=== PATIENT | female | born 1975 | race Caucasian/White ===

== ENCOUNTER 2018-05-20 20:41 | Emergency (ER) | payer BC ==
[~2018-05-20] VITALS: Ht 172.7 cm; Wt 90.7 kg
[2018-05-20 20:48] VITALS: BP_SYST 146
[2018-05-20 21:25] LABS: HEMATOCRIT 45.2 % (36-48); HEMOGLOBIN 14.9 g/dL (12.0-16.0); MEAN CORPUSCULAR HEMOGLOBIN 32 pg (27-31); MEAN CORPUSCULAR HGB CONC 33 % (32-36); MEAN CORPUSCULAR VOLUME 96 fL (79.0-98.0); PLATELET COUNT (AUTO) 267 K/uL (130-430); RED BLOOD CELL COUNT(AUTO) 4.72 MIL/uL (4.2-6.2); RED CELL DISTRIBUTION WIDTH 12.3 % (9.0-15.0); WHITE BLOOD COUNT (AUTO) 10.2 K/uL (4.8-10.8)
--- NOTE | 2018-05-20 21:30 | NUR ---
Placed in room 1 . 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 To gown for exam. Side rails up.
[2018-05-20 21:33] LABS: ANION GAP 10 (5-15); CALCIUM 9.6 mg/dL (8.4-11.0); CHLORIDE 102 mmol/L (98-107); CREATININE 0.71 mg/dL (0.55-1.30); GLUCOSE 90 mg/dL (70-99); POTASSIUM 3.8 mmol/L (3.5-5.1); SODIUM SERUM 138 mmol/L (136-145); UREA NITROGEN, BLOOD 14 mg/dL (8-21)
--- NOTE | 2018-05-20 21:33 | NUR ---
Pt complains of right sided chest pain that started this morning. Pt states pain increases more when she moves or tries to take a deep breath. Per patient, pain does not radiate anywhere. Pt denies N/V, fever, blurred vision. Pt AAO x 4 and ambulatory. No other injuries/complaints per patient or noted.
--- NOTE | 2018-05-20 21:35 | NUR ---
ER Dr. Cordova at bedside examining patient.
--- NOTE | 2018-05-20 21:35 | NUR ---
Note annika in ED - 05/20/18 at 2140 by [email or web address] Placed in room 1 . 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 To gown for exam. Side rails up.
[2018-05-20 21:38] LABS: GFR AFRICAN AMERICAN 116 mL/min (>90)
[2018-05-20 21:41] LABS: ALANINE AMINOTRANSFERASE 61 U/L (12-78); ASPARTATE AMINOTRANSFERASE 31 U/L (10-37); TOTAL BILIRUBIN 0.9 mg/dL (0.0-1.0)
[2018-05-20] MEDS ORDERED: KETOROLAC TROMETHAMINE 60 MG/2 ML VIAL IM ONE (22:00)
[2018-05-20 22:16] LABS: ATYPICAL LYMPHOCYTES % 0 % (0-0); BAND % (MANUAL) 4 % (0-6); BASOPHILS % (MANUAL) 0 % (0-2); EOSINOPHILS % (MANUAL) 5 % (0-7); LYMPHOCYTES % (MANUAL) 22 % (20-46); MONOCYTES % (MANUAL) 3 % (0-11)
--- NOTE | 2018-05-20 22:25 | NUR ---
Medication was given, pt tolerated well. No adverse reaction, will continue to monitor.
[2018-05-20 22:57] VITALS: BP_SYST 136
--- NOTE | 2018-05-20 22:57 | NUR ---
Patient given written and verbal discharge instructions and verbalizes understanding. ER MD discussed with patient the results and treatment provided. Patient in stable condition. ID arm band removed. No Rx given. Patient educated on pain management and to follow up with PMD. Pain Scale 0. Opportunity for questions provided and answered. Medication side effect fact sheet provided.
== END 2018-05-20 22:57 | disposition home or self-care (01) ==
LOC: SED 20:41
DX: R09.1 Pleurisy (principal); R03.0 Elevated blood-pressure reading, without diagnosis of hypertension; E78.00 Pure hypercholesterolemia, unspecified
CPT/HCPCS: 36415; 71045; 80053; 84484; 85007; 85027; 93005; 96372; 99285; J1885